=== PATIENT | female | born 1940 | race Two or more races ===

== ENCOUNTER 2023-09-29 08:33 | Emergency (ER) | payer OTHER ==
[~2023-09-29] VITALS: Ht 142.2 cm; Wt 50.3 kg
[2023-09-29 09:08] LABS: BASOPHILS % (AUTO) 0.2 % (0.0-2.0); EOSINOPHILS # (AUTO) 0.1 K/uL (0.0-0.7); EOSINOPHILS % (AUTO) 1.2 % (0.0-6.0); HEMATOCRIT 41 % (33-45); HEMOGLOBIN 13.2 g/dL (11.5-14.8); LYMPHOCYTES # (AUTO) 0.8 K/uL (0.8-4.8); LYMPHOCYTES % (AUTO) 6.8 % (20.0-44.0); MEAN CORPUSCULAR HEMOGLOBIN 30 PG (26.0-33.0); MEAN CORPUSCULAR HGB CONC 32 g/dl (31.0-36.0); MEAN CORPUSCULAR VOLUME 93 fL (82-100); MONOCYTES # (AUTO) 0.6 K/uL (0.1-1.30); MONOCYTES % (AUTO) 5.4 % (2.0-12.0); NEUTROPHILS # (AUTO) 9.8 K/uL (1.8-8.9); NEUTROPHILS % (AUTO) 86.4 % (43.0-81.0); PLATELET COUNT (AUTO) 126 K/uL (150-450); RED BLOOD CELL COUNT(AUTO) 4.46 MIL/uL (4.0-5.2); RED CELL DISTRIBUTION WIDTH 17.3 % (11.5-15.0); WHITE BLOOD COUNT (AUTO) 11.4 K/uL (4.3-11.0)
[2023-09-29 09:20] LABS: CALCIUM, SERUM 9.2 mg/dL (8.5-10.1); CARBON DIOXIDE 24 mmol/L (21-32); CHLORIDE 107 mmol/L (98-107); CREATININE 1.1 mg/dL (0.6-1.3); GLUCOSE 233 mg/dL (74-106); POTASSIUM 3.8 mmol/L (3.5-5.1); SODIUM SERUM 142 mmol/L (136-145); UREA NITROGEN, BLOOD 19 mg/dL (7-18)
[2023-09-29 09:37] LABS: ALANINE AMINOTRANSFERASE 7 U/L (12-78); ALBUMIN 3.3 g/dL (3.4-5.0); ALKALINE PHOSPHATASE 98 U/L (46-116); ASPARTATE AMINOTRANSFERASE 16 U/L (15-37); BILIRUBIN,DIRECT 0.2 mg/dL (0.0-0.2); BILIRUBIN,TOTAL 0.5 mg/dL (0.2-1.0); NT-PRO BNP 1845 pg/mL (0-125); TOTAL PROTEIN, SERUM 8.1 g/dL (6.4-8.2)
[2023-09-29] MEDS ORDERED: MECL-159 PO (10:12)
[2023-09-29] MEDS ORDERED: AMLO-212 PO (10:12)
[2023-09-29] MEDS ORDERED: NA P133E RC (10:12)
[2023-09-29] MEDS ORDERED: METO50TA16 PO (10:12)
[2023-09-29] MEDS ORDERED: ACET-637 PO (10:12)
[2023-09-29] MEDS ORDERED: CYAN-51 PO (10:12)
[2023-09-29] MEDS ORDERED: CHOL400T58 PO (10:12)
[2023-09-29] MEDS ORDERED: ATOR10TA PO (10:12)
[2023-09-29] MEDS ORDERED: MAGN400O6 PO (10:12)
[2023-09-29] MEDS ORDERED: MIRT-90 PO (10:12)
[2023-09-29] MEDS ORDERED: OMEP20CA15 PO (10:12)
[2023-09-29] MEDS ORDERED: FERR325T24 PO (10:12)
[2023-09-29] MEDS ORDERED: ONDA-97 PO (10:12)
[2023-09-29] MEDS ORDERED: FURO-145 PO (10:12)
[2023-09-29] MEDS ORDERED: MAGN400T52 PO (10:12)
[2023-09-29] MEDS ORDERED: ALLO300T2 PO (10:12)
[2023-09-29] MEDS ORDERED: POTA10TA10 PO (10:12)
[2023-09-29] MEDS ORDERED: ACET325T53 PO (10:12)
[2023-09-29] MEDS ORDERED: GUAI100S9 PO (10:12)
[2023-09-29] MEDS ORDERED: ASCO-352 PO (10:12)
[2023-09-29] MEDS ORDERED: MEMA10TA PO (10:12)
[2023-09-29] MEDS ORDERED: MIRABEGRON PO (10:12)
[2023-09-29 12:12] LABS: APPEARANCE,URINE CLOUDY (CLEAR); BILIRUBIN,URINE NEGATIVE (NEGATIVE); BLOOD, URINE NEGATIVE Ery/uL (NEGATIVE); COLOR,URINE YELLOW (YELLOW); KETONES,URINE NEGATIVE (NEGATIVE); LEUKOCYTE ESTERASE ,URINE 2+ (NEGATIVE); NITRITE, URINE NEGATIVE (NEGATIVE); PH,URINE 6.5 (5.0-8.0); PROTEIN,URINE 1+ mg/dl (NEGATIVE); UGLUCOSE NEGATIVE (NEGATIVE)
[2023-09-29 12:30] LABS: ADD URINE CULTURE YES; BACTERIA,URINE Many /HPF (None Seen); RBC,URINE 0-2 /HPF (0-2); SQUAMOUS EPITHELIAL CELL,UR Many /HPF (None Seen)
[2023-09-29 13:20] VITALS: BP 145/81; TEMP 98; O2SAT 94
== END 2023-09-29 13:22 ==
LOC: ER 09:08
DX: R05.9 Cough, unspecified (principal); F03.90 Unspecified dementia, unspecified severity, without behavioral disturbance, psychotic disturbance, mood disturbance, and anxiety; I11.0 Hypertensive heart disease with heart failure; I50.9 Heart failure, unspecified; E78.5 Hyperlipidemia, unspecified; K21.9 Gastro-esophageal reflux disease without esophagitis; E11.9 Type 2 diabetes mellitus without complications; Z79.899 Other long term (current) drug therapy; Z20.822 Contact with and (suspected) exposure to COVID-19; Z88.1 Allergy status to other antibiotic agents
CPT/HCPCS: 36415; 71045-TC; 80048-TC; 80076-TC; 81001; 83880; 84484-TC; 85025-TC; 87086-TC

== ENCOUNTER 2023-11-29 15:14 | Emergency (ER) | payer OTHER ==
[~2023-11-29] VITALS: Ht 152.4 cm; Wt 54.4 kg
[~2023-11-29 15:14] MED LIST: ACET-637 PO; ACET325T53 PO; ALLO300T2 PO; AMLO-212 PO; ASCO-352 PO; ATOR10TA PO; CHOL400T58 PO; CYAN-51 PO; FERR325T24 PO; FURO-145 PO; GUAI100S9 PO; MAGN400O6 PO; MAGN400T52 PO; MECL-159 PO; MEMA10TA PO; METO50TA16 PO; MIRABEGRON PO; MIRT-90 PO; NA P133E RC; OMEP20CA15 PO; ONDA-97 PO; POTA10TA10 PO
[2023-11-29 15:20] VITALS: TEMP 97.9
[2023-11-29] MEDS ORDERED: ONDANSETRON HCL/PF 4 MG/2 ML VIAL ONE (15:41)
[2023-11-29] MEDS: ONDANSETRON HCL/PF 4 MG/2 ML VIAL IVP ONE (15:43)
[2023-11-29] MEDS ORDERED: IOHEXOL-350 100 ML VIAL IV ONE (15:50)
[2023-11-29 15:51] LABS: BASOPHILS % (AUTO) 0.1 % (0.0-2.0); EOSINOPHILS # (AUTO) 0.1 K/uL (0.0-0.7); EOSINOPHILS % (AUTO) 1.4 % (0.0-6.0); HEMATOCRIT 37 % (33-45); HEMOGLOBIN 11.9 g/dL (11.5-14.8); LYMPHOCYTES # (AUTO) 1.3 K/uL (0.8-4.8); LYMPHOCYTES % (AUTO) 15.8 % (20.0-44.0); MEAN CORPUSCULAR HEMOGLOBIN 30 PG (26.0-33.0); MEAN CORPUSCULAR HGB CONC 32 g/dl (31.0-36.0); MEAN CORPUSCULAR VOLUME 93 fL (82-100); MONOCYTES # (AUTO) 0.6 K/uL (0.1-1.30); MONOCYTES % (AUTO) 7.4 % (2.0-12.0); NEUTROPHILS # (AUTO) 6.1 K/uL (1.8-8.9); NEUTROPHILS % (AUTO) 75.3 % (43.0-81.0); PLATELET COUNT (AUTO) 160 K/uL (150-450); RED BLOOD CELL COUNT(AUTO) 4.02 MIL/uL (4.0-5.2); RED CELL DISTRIBUTION WIDTH 18.6 % (11.5-15.0)
[2023-11-29] MEDS ORDERED: IV NS 0.9% 250 ML IV ONE (15:51)
[2023-11-29 15:55] LABS: CARBON DIOXIDE 26 mmol/L (21-32); CHLORIDE 107 mmol/L (98-107); CREATININE 1.1 mg/dL (0.6-1.3); GLUCOSE 115 mg/dL (74-106); POTASSIUM 3.9 mmol/L (3.5-5.1); SODIUM SERUM 141 mmol/L (136-145); UREA NITROGEN, BLOOD 26 mg/dL (7-18)
[2023-11-29 16:02] LABS: ALANINE AMINOTRANSFERASE 15 U/L (12-78); ALBUMIN 3.3 g/dL (3.4-5.0); ALKALINE PHOSPHATASE 90 U/L (46-116); ASPARTATE AMINOTRANSFERASE 20 U/L (15-37); BILIRUBIN,DIRECT 0.2 mg/dL (0.0-0.2); BILIRUBIN,TOTAL 0.6 mg/dL (0.2-1.0); LIPASE 19 U/L (16-77); TOTAL PROTEIN, SERUM 7.5 g/dL (6.4-8.2)
[2023-11-29 16:04] LABS: LACTIC ACID 1.1 mmol/L (0.4-2.0)
[2023-11-29] MEDS ORDERED: PANTOPRAZOLE 40 MG VIAL ONE (16:04)
[2023-11-29] MEDS ORDERED: OXYB10TA30 PO (16:10)
[2023-11-29] MEDS ORDERED: DIPH25TA62 PO (16:10)
[2023-11-29] MEDS ORDERED: VITS42.53 TP (16:10)
[2023-11-29] MEDS ORDERED: TEA60OIL TP (16:10)
[2023-11-29] MEDS ORDERED: LEVO25TA9 PO (16:10)
[2023-11-29] MEDS: IV NS 0.9% 1,000 ML BAG IV ONE (16:25)
[2023-11-29] MEDS: PANTOPRAZOLE 40 MG VIAL IV ONE (16:30)
[2023-11-29 23:51] VITALS: BP 134/78; O2SAT 95
== END 2023-11-30 02:53 | disposition short-term general hospital (02) ==
LOC: ER 15:17
DX: K92.2 Gastrointestinal hemorrhage, unspecified (principal); R11.10 Vomiting, unspecified; F03.90 Unspecified dementia, unspecified severity, without behavioral disturbance, psychotic disturbance, mood disturbance, and anxiety; I11.0 Hypertensive heart disease with heart failure; I50.9 Heart failure, unspecified; E78.5 Hyperlipidemia, unspecified; K21.9 Gastro-esophageal reflux disease without esophagitis; E11.9 Type 2 diabetes mellitus without complications; Z79.899 Other long term (current) drug therapy; Z88.5 Allergy status to narcotic agent; Z88.1 Allergy status to other antibiotic agents
CPT/HCPCS: 99291; 74174; 96374; 71045; 96361; 96375; 93005; 85025; 80048; 83605; 83690; 80076; 36415; 84484; 86850; 82962; J2405; J7030; J7050; C9113; Q9967